=== PATIENT | female | born 1990 | race Hispanic/Latino ===

== ENCOUNTER 2016-10-08 18:59 | Emergency (ER) | payer OTHER ==
[2016-10-08 19:00] VITALS: BMI 20.1
[2016-10-08 19:15] VITALS: O2SAT 100
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
[2016-10-08 20:29] VITALS: BP 113/67; PULSE 67; RESP 16
[2016-10-08 21:16] VITALS: TEMP 98.2
--- NOTE | 2016-10-09 09:20 | RAD ---
PROCEDURE: Right Knee Radiographs. HISTORY: COMPARISON: None available. FINDINGS: BONES: No acute displaced fracture. JOINTS: No dislocation. JOINT EFFUSION: No significant joint effusion. OTHER FINDINGS: None. IMPRESSION: No acute displaced fracture, dislocation, or significant joint effusion identified. If symptoms persist, or if there is continued clinical concern, x-ray follow-up in 7-10 days should be considered.
== END 2016-10-08 21:19 | disposition home or self-care (01) ==
LOC: ED 18:59
DX: S46.912A Strain of unspecified muscle, fascia and tendon at shoulder and upper arm level, left arm, initial encounter (principal); S89.92XA Unspecified injury of left lower leg, initial encounter; V49.50XA Passenger injured in collision with unspecified motor vehicles in traffic accident, initial encounter